=== PATIENT | male | born 1965 | race Caucasian/White ===

== ENCOUNTER 2025-01-12 14:58 | Emergency (ER) | payer BC, SELFPAY ==
[2025-01-12 15:15] VITALS: BP 162/92; PULSE 61; RESP 16; TEMP 36.7; O2SAT 99
--- NOTE | 2025-01-12 15:45 | DI.CT_ITS ---
Exam(s) CT HEAD WO EXAM: CT HEAD WO CLINICAL HISTORY: headache. TECHNIQUE: Imaging Protocol: Axial computed tomography images with coronal and sagittal reformatted images were created and reviewed COMPARISON: No exams were available for comparison FINDINGS: There are no skull fractures. There is no fluid in the visualized paranasal sinuses. There is no evidence of intracranial hemorrhage, mass effect, or shift of midline structures. There are no extra-axial fluid collections. The ventricles are not enlarged or shifted and there is no blood within the ventricular system nor within the basal cisterns. IMPRESSION: No acute intracranial findings on this noninfused CT scan of the brain. Report called by myself to ER 01/12/2025 at 5:36 p.m. RADIATION DOSE DELIVERED: 938.77mGy.cm Total DLP DATA REPOSITORY: All CT scans at this facility are submitted to the National Radiology Data Registry (NRDR) Dose Index Registry (DIR) with the [employer] ([employer]). RADIATION OPTIMIZATION: All CT scans at this facility use at least one of these dose optimization techniques: automated exposure control; mA and/or kV adjustment per patient size (includes targeted exams where dose is matched to clinical indication); or iterative reconstruction.
--- NOTE | 2025-01-12 15:48 | W.ED.GENAD ---
Discharge Plan Disposition Patient Disposition: Home Discharge Details Clinical Impression: Headache Primary Care Provider: None,None ED Provider: Yosvany Babin Home Meds and New Rx's Prescriptions: Continued lamotrigine [Lamictal] 200 mg tablet 200 mg PO DAILY bupropion HCl [Wellbutrin XL] 300 mg tablet extended release 24 hr 300 mg PO DAILY dextroamphetamine-amphetamine [Adderall] 30 mg tablet 40 mg PO DAILY Discharge Instructions Instructions: Headache, Adult ED Additional Instructions: Please follow-up with your primary care provider regarding your visit to the emergency department today. Be sure to discuss results of all test performed here today to include radiology, and laboratory testing as well as results for any pending cultures. Should your symptoms worsen, or if you develop new concerning symptoms, please return immediately emergency department for further evaluation. HPI General Date/Time Provider Initiated Documentation: 01/12/25 15:28. HPI Narrative: MDM/Narrative: 59-year-old male with sinus pressure, headache, and nausea since , worsened today. No fever, chills, or vision changes. History of borderline hypertension, cervical arthritis, and cataract surgery. Differential Diagnosis: - Tension headache: Plan trigger point injections and IV medications for headache and nausea. - Chronic rhinitis: Could contribute to sinus pressure and referred headache. - Intracranial mass/intracranial hemorrhage: CT without contrast ordered ED Course: - Administered trigger point injections and IV medications for headache and nausea. Final Assessment: Administered trigger point injections and IV medications for headache and nausea. CT without acute finding Clinical Impression: - Tension headache - Chronic rhinitis Disposition: - Discharge: Home. Return to ED if symptoms worsen or new symptoms develop. This document was created with assistance from [employer]. The patient consented to its use. HPI: The patient is a 59-year-old male with a history of borderline hypertension and cervical arthritis, presenting with symptoms of sinus pressure. The patient reports experiencing motion sickness accompanied by persistent pressure in the temples and sinuses since January 09, 2025. This pressure has now extended to the vertex of the head, described as a constrictive sensation. He also reports mild nausea, muscle tightness in the neck and upper back, variable appetite, and slight nausea since this morning. His recent blood pressure readings have been in the mid to lower 120s mmHg. He denies any allergies, recent insect bites, trauma, or head injury. He has not experienced fevers, chills, or changes in vision. On January 09, 2025, he vomited during a climbing activity and subsequently rested on January 10 and 2024, avoiding riding activities today. Administration of ibuprofen at 0930 hours today did not alleviate his symptoms. He has a history of two migraine episodes. He reports chronic nasal congestion and difficulty breathing through the nose. A cervical mass has been managed with acupuncture and chiropractic interventions. PAST SURGICAL HISTORY: The patient underwent cataract surgery several years ago. ROS: Negative besides as mentioned above Exam: Vital signs: Reviewed. General Appearance: Alert and oriented. No acute distress. HEENT: Right sinus tenderness. EOMI. PERRLA. Neck: No spinal pain. Tense neck and upper back muscles, especially right side. No shoulder radiating pain. Respiratory: No Respiratory distress. No tachypnea. Cardiovascular: RRR, no edema. Gastrointestinal: Soft, nondistended, No rebound tenderness. Back: No midline tenderness to palpation or palpable step-offs of the C/T/L spine. Musculoskeletal: Tense upper back muscles, especially right side. No radiating pain trigger points. Skin: Warm and dry, no rash. Neurological: Normal Gait, Grossly intact. Cranial nerves II through XII intact normal speech Psychiatric: Appropriate for situation. Radiology: Exam(s) CT HEAD WO EXAM: CT HEAD WO CLINICAL HISTORY: headache. TECHNIQUE: Imaging Protocol: Axial computed tomography images with coronal and sagittal reformatted images were created and reviewed COMPARISON: No exams were available for comparison FINDINGS: There are no skull fractures. There is no fluid in the visualized paranasal sinuses. There is no evidence of intracranial hemorrhage, mass effect, or shift of midline structures. There are no extra-axial fluid collections. The ventricles are not enlarged or shifted and there is no blood within the ventricular system nor within the basal cisterns. IMPRESSION: No acute intracranial findings on this noninfused CT scan of the brain. Report called by myself to ER 01/12/2025 at 5:36 p.m. RADIATION DOSE DELIVERED: 938.77mGy.cm Total DLP DATA REPOSITORY: All CT scans at this facility are submitted to the National Radiology Data Registry (NRDR) Dose Index Registry (DIR) with the [employer] ([employer]). RADIATION OPTIMIZATION: All CT scans at this facility use at least one of these dose optimization techniques: automated exposure control; mA and/or kV adjustment per patient size (includes targeted exams where dose is matched to clinical indication); or iterative reconstruction. Related Data Home Medications ?Medication ?Instructions ?Recorded ?Confirmed bupropion HCl 300 mg 24 hr tablet, 300 mg PO DAILY 01/12/25 01/12/25 extended release (Wellbutrin XL) dextroamphetamine-amphetamine 30 40 mg PO DAILY 01/12/25 01/12/25 mg tablet (Adderall) lamotrigine 200 mg tablet 200 mg PO DAILY 01/12/25 01/12/25 (Lamictal) Allergies Allergy/AdvReac Type Severity Reaction Status Date / Time No Known Allergies Allergy Verified 01/12/25 15:30 General Stated Complaint: Headache SINGH: 3 Course Vital Signs Vital signs: Vital Signs Temperature 36.7 C 01/12/25 15:15 Pulse 61 01/12/25 15:15 Respiratory Rate 16 01/12/25 15:15 Blood Pressure 162/92 H 01/12/25 15:15 Pulse Oximetry 99 01/12/25 15:15 Temperature 36.7 C 01/12/25 15:15 Temperature Source Oral 01/12/25 15:15 Pulse 61 01/12/25 15:15 Respiratory Rate 16 01/12/25 15:15 Blood Pressure 162/92 H 01/12/25 15:15 Blood Pressure Position Sitting 01/12/25 15:15 Pulse Oximetry 99 01/12/25 15:15 Oxygen Delivery Method Room Air 01/12/25 15:15 Oxygen Flow Rate 0 01/12/25 15:15 Pain Level 4 01/12/25 15:15 PFSH All Active Problems (Updated 01/12/25 @ 17:42 by Yosvany Babin MD) Headache (Acute) Social History Smoking/Tobacco Use Status: Never Smoking risk assessment performed?: Yes Alcohol Intake: never Housing: house
[2025-01-12] MEDS: Droperidol 5 MG/2 ML VIAL 2.5 MG IVP (16:10)
[2025-01-12] MEDS: Acetaminophen 500 MG TAB 1000 MG PO (16:10)
[2025-01-12] MEDS: Ketorolac 15 MG/ML VIAL IVP (16:10)
[2025-01-12] MEDS: MAGNESIUM SULFATE 2 GM/50 ML BAG IV_INF (16:10)
[2025-01-12] MEDS: Normal Saline 1,000 ML 1000 ML IV (16:11)
[2025-01-12 18:02] VITALS: BP 162/92; PULSE 61; RESP 16; TEMP 36.7; O2SAT 99
== END 2025-01-12 18:03 | disposition home or self-care (01) ==
PROVIDERS: Emergency Provider General Practice
DX: R51.9 Headache, unspecified (principal); R11.10 Vomiting, unspecified
CPT/HCPCS: 96365; 96366; 96374; 96375; 70450; 99284; J1790; J1885; J3475